=== PATIENT | female | born 1960 | race Caucasian/White ===

== ENCOUNTER 2016-10-22 06:10 | Inpatient (IN) | payer OTHER ==
[~2016-10-22] VITALS: Ht 162.6 cm; Wt 104.3 kg
--- NOTE | 2016-10-22 06:30 | NUR ---
PT TO ED C/O CHEST PAIN/PRESSURE AND RACING HEART. PT HAS HX OF CARDIAC BYPASS AND STENT PLACEMENT. EKG DONE, PT PLACED ON DIRECTOR RADIATION ONCOLOGY, ST AT 154. PAIN WAS MIDSTERNAL 7/10 CHEST PRESSURE. PT DID NOT TAKE ANY MEDICATIONS AT HOME FOR CP. PT C/O SOB EARLIER BUT NOT AT CURRENT MOMENT, 93% ON ROOM AIR.
--- NOTE | 2016-10-22 06:36 | NUR ---
AT BEDSIDE FOR PT EVALUATION
[2016-10-22 06:56] LABS: ABSOLUTE BASOPHIL COUNT 0.1 /CUMM (0.0-0.2); ABSOLUTE EOSINOPHIL COUNT 0.5 /CUMM (0.0-0.7); ABSOLUTE GRANULOCYTE CT 4.8 /CUMM (1.4-6.5); ABSOLUTE LYMPH COUNT 3.1 /CUMM (1.2-3.4); ABSOLUTE MONOCYTE COUNT 0.7 /CUMM (0.10-0.60); BASOPHIL % 0.9 % (0.0-2.0); EOSINOPHIL % 5.1 % (0-5); GRANULOCYTE % 52.4 % (42.2-75.2); HEMATOCRIT 43.7 % (37-47); MEAN CORPUSCULAR HGB 29.1 PG (27.0-31.0); MEAN CORPUSCULAR HGB CONC 34.2 G/DL (33.0-37.0); MEAN PLATELET VOLUME 10.1 FL (7.4-10.4); PLATELET COUNT 191 /CUMM (130-400); RBC DISTRIBUTION WIDTH 13.7 % (11.5-14.5); RED BLOOD CELL CT 5.14 /CUMM (4.20-5.40); WHITE BLOOD CELL COUNT 9.2 /CUMM (4.8-10.8)
[2016-10-22] MEDS ORDERED: ASPIRIN81 M4 PO (07:54)
[2016-10-22] MEDS ORDERED: ATORVASTATIN CA10 M1 PO (07:54)
[2016-10-22] MEDS ORDERED: AMLODIPINE BESYL5 M1 PO (07:54)
[2016-10-22] MEDS ORDERED: AMARYL4 M1 PO (07:55)
[2016-10-22] MEDS ORDERED: ISOSORBIDE MONO30 M1 PO (07:55)
[2016-10-22] MEDS ORDERED: LISINOPRIL40 M1 PO (07:55)
[2016-10-22] MEDS ORDERED: METOPROLOL TART50 M1 PO (07:56)
[2016-10-22] MEDS ORDERED: CLOPIDOGREL75 M1 PO (07:56)
[2016-10-22] MEDS ORDERED: DAILY MULTIPLE1 EACH PO (07:56)
[2016-10-22] MEDS ORDERED: METFORMIN HCL1000 M1 PO (07:56)
[2016-10-22] MEDS ORDERED: PROAIR HFA8.5 GM INH (07:57)
--- NOTE | 2016-10-22 07:59 | RADIOLOGY REPORT ---
EXAMINATION: XR PORTABLE CHEST CLINICAL INFORMATION: Chest pain COMPARISON: Chest radiographs 09/23/2011. TECHNIQUE: Portable frontal view of the chest was obtained. FINDINGS: There is been prior coronary artery bypass with mediastinal clips and sternotomy wires. Heart is within limits of normal size from portable AP view. The vascularity is normal. The lungs are clear. There is no pneumothorax, airspace consolidation, or effusion. The hilar and mediastinal contours and visualized bony structures are unremarkable. IMPRESSION: Prior coronary artery bypass. Lungs clear.
--- NOTE | 2016-10-22 08:06 | ED CARDIAC/CP/PALPITATIONS ---
History of Present Illness General Chief Complaint: Chest Pain Stated Complaint: " CHEST PAIN X1HOUR" Source: patient Exam Limitations: no limitations Vital Signs & Intake/Output Vital Signs & Intake/Output Vital Signs Date Time Temp Pulse Resp B/P B/P Pulse O2 O2 Flow FiO2 Mean Ox Delivery Rate 10/22 0558 156 18 141/86 10/22 0654 96.0 156 20 141/86 98 Room Air 10/22 0629 98.2 156 20 140/86 96 Room Air Allergies Coded Allergies: NO KNOWN ALLERGIES (09/13/11) Reconcile Medications Albuterol Sulfate (Proair Hfa) 90 MCG HFA.AER.AD 2 PUF INH Q4-6 PRN PRN SHORTNESS OF BREATH (Reported) Amlodipine Besylate 5 MG TABLET 1 TAB PO DAILY HEART (Reported) Aspirin (Aspirin*) 81 MG TAB.CHEW 1 TAB PO DAILY HEART HEALTH (Reported) Atorvastatin Calcium 10 MG TABLET 1 TAB PO DAILY CHOLESTEROL (Reported) Clopidogrel Bisulfate (Clopidogrel) 75 MG TABLET 1 TAB PO DAILY BLOOD THINNER (Reported) Glimepiride (Amaryl) 4 MG TABLET 1 TAB PO DAILY DIABETES (Reported) Isosorbide Mononitrate (Isosorbide Mononitrate ER) 30 MG TAB.ER.24H 1 TAB PO DAILY HEART (Reported) Lisinopril 40 MG TABLET 1 TAB PO DAILY HEART (Reported) Metformin HCl 1,000 MG TABLET 1 TAB PO BID DIABETES (Reported) Metoprolol Tartrate 50 MG TABLET 1 TAB PO BID HEART (Reported) Multivitamin (Daily Multiple Vitamin) 1 EACH TABLET 1 TAB PO DAILY VITAMIN SUPPORT (Reported) Triage Note: PT TO ED C/O CHEST PAIN/PRESSURE AND RACING HEART. PT HAS HX OF CARDIAC BYPASS AND STENT PLACEMENT. 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 PAIN WAS MIDSTERNAL 7/10 CHEST PRESSURE. PT DID NOT TAKE ANY MEDICATIONS AT HOME FOR CP. PT C/O SOB EARLIER BUT NOT AT CURRENT MOMENT, 93% ON ROOM AIR. Triage Nurses Notes Reviewed? yes HPI: Patient presents for evaluation of a rapid heartbeat that began abruptly about 1 hour prior to arrival. Patient states that she awoke feeling the pain and took a cold drink but this didn't seem to help. She also felt an associated chest heaviness and shortness of breath. She has had these episodes over the past 2 weeks intermittently. Prior to that she experienced these about 5 years ago before a cardiac bypass. She states currently she isn't really feeling the palpitations anymore. She has a mild chest heaviness in the substernal region. (SUKHDEV TRIMBLE,ANGELINA Maldonado) Past History Travel History Traveled to [place] past 21 day No Medical History Any Pertinent Medical History? 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 No (ANGELINA SANTIZO MD) Review of Systems Review of Systems Constitutional: Reports: no symptoms. EENTM: Reports: no symptoms. Respiratory: Reports: no symptoms. Cardiovascular: Reports: see HPI. GI: Reports: no symptoms. Genitourinary: Reports: no symptoms. Musculoskeletal: Reports: no symptoms. Skin: Reports: no symptoms. Neurological/Psychological: Reports: no symptoms. Hematologic/Endocrine: Reports: no symptoms. Immunologic/Allergic: Reports: no symptoms. All Other Systems: Reviewed and Negative (ANGELINA SANTIZO MD) Physical Exam Physical Exam Cardiovascular: SEE BELOW Comments: Gen.: Well-nourished, well-developed, no acute respiratory distress. Head: Normocephalic, atraumatic. Eyes: Normal inspection bilaterally Ears: Normal inspection bilaterally Nose: Normal inspection Throat/mouth : Moist mucosa Neck: Supple, full range of motion, no goiter Heart: Rapid Regular rate and rhythm, no murmurs rubs or gallops Lungs: Clear to auscultation bilaterally with normal air entry Chest: Nontender Back: Normal range of motion Abdomen: Soft, nontender, nondistended, normal bowel sounds Extremities: Normal range of motion grossly, equal radial pulses, no cyanosis clubbing or edema Neurologic: Cranial nerves grossly intact, speech is clear Skin: warm and dry Psychiatric: Calm, cooperative, no apparent delusions or hallucinations Core Measures ACS in differential dx? Yes Severe Sepsis Present: No Septic Shock Present: No (ANGELINA SANTIZO MD) Progress Differential Diagnosis: svt, SINUS TACHYCARDIA, ACUTE CORONARY SYNDROME Plan of Care: Orders Procedure Date/time Status Place in observation 10/22 917 Active TROPONIN LEVEL 10/22 641 Complete MAGNESIUM 10/22 641 Complete CBC WITHOUT DIFFERENTIAL 10/22 641 Complete BASIC METABOLIC PANEL 10/22 641 Complete EKG 10/23 611 Active Laboratory Tests 10/22/16 0647: Anion Gap 13, Estimated GFR > 60, BUN/Creatinine Ratio 25.0, Glucose 443 H, Calcium 9.4, Magnesium 1.6, Troponin I 0.02, CBC w Diff NO MAN DIFF REQ, RBC 5.14, MCV 85.0, MCH 29.1, RDW 13.7, MPV 10.1, Gran % 52.4, Lymphocytes % 34.1, Monocytes % 7.5, Eosinophils % 5.1 H, Basophils % 0.9, Absolute Granulocytes 4.8, Absolute Lymphocytes 3.1, Absolute Monocytes 0.7 H, Absolute Eosinophils 0.5, Absolute Basophils 0.1, PUBS MCHC 34.2 Initial ED EKG: SINUS TACHYCARDIA WITH A VENTRICULAR RATE OF 155, LIKELY lvh WITH NONSPECIFIC st SEGMENT CHANGES Prior EKG: changed (NORMAL SINUS RHYTHM ON PRIOR) Repeat EKG: changed (NSR, RATE 90'S) Comments: 10/22/2016 8:04:23 AM 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 (SUKHDEV TRIMBLE,ANGELINA Maldonado) Departure Departure Disposition: STILL A PATIENT Condition: Stable Clinical Impression Primary Impression: Sinus tachycardia Secondary Impressions: Chest pain Referrals: JORDEN RODAS,RIO RANDOLPH (PCP/Family) Departure Forms: Customer Survey General Discharge Information (SUKHDEV TRIMBLE,ANGELINA Maldonado) Observation Note Spoke With: ISSA TRIMBLE,[facility] Physician Advisor Notified: CB MARINO MD Place Patient In: Non-ED OBS Care Area Rationale for Observation: My rational for observation is as follows [telemetry monitoring with cardiology consultation, beta blockers, serial enzymes]. (CB MARINO MD) Critical Care Note Critical Care Note Critical Care Time: mins: (45 MIN) (CB MARINO MD)
--- NOTE | 2016-10-22 09:24 | History & Physical ---
OMI ALONZO 10/22/16 0923: General Information and HPI MD Statement: I have seen and personally examined ZAIN CABRERA and documented this H&P. The patient is a 56 year old F who presented with a patient stated chief complaint of [chest pain]. Source of Information: patient Exam Limitations: no limitations History of Present Illness: 56 year old female with PMH of coronary artery disease s/p CABG X4 (08/26/2011) and PCI in 08/23, NIDDM, hypertension, dyslipidemia, with family history of coronary artery disease at a young age (brother 54 years), current someday smoker presented to the ED with c/o CP, palpitations. According to the patient she was her USOH until this morning when she had diet coke this AM, and felt as if she chest pressure, left sided, radiated to the neck, associated with palpitations and SOB. She states giuven her cardiac history she decided to ciome to the ER. Grades it as an 8/10 that progressively worsened even in the ER. Also endorses orthopnea. States that the palpitations have been occuring intermitentlky for the past 1-2 weeks. Of note her brother siria a week ago. Denies any worsening THACKER. Denies any lightheadednesss, nausea, vomiting, or diaphoresis. Palpitations lasted for about an hr, however, this morning did not go away until after she wa sin the ED and received IV meds. Endorses numbness in her toes for about 2 months ago. Symptoms at time of CABG - GERD like symptoms, THACKER, feeling tired. Has not had a an echo or stress test within the past 2 years. Deneis fever,chills. States that she was told she has an artery that was not amenable to any intervention when she had undergone PCI back in 2011. F/U with Dr. Palmer - doesn't recall her HbA1c. Has been compliant with medications. F/U with Dr. Kerr- last saw him in May this year. Allergies/Medications Allergies: Coded Allergies: NO KNOWN ALLERGIES (09/13/11) Home Med list Albuterol Sulfate (Proair Hfa) 90 MCG HFA.AER.AD 2 PUF INH Q4-6 PRN PRN SHORTNESS OF BREATH (Reported) Amlodipine Besylate 5 MG TABLET 1 TAB PO DAILY HEART (Reported) Aspirin (Aspirin*) 81 MG TAB.CHEW 1 TAB PO DAILY HEART HEALTH (Reported) Atorvastatin Calcium 10 MG TABLET 1 TAB PO DAILY CHOLESTEROL (Reported) Clopidogrel Bisulfate (Clopidogrel) 75 MG TABLET 1 TAB PO DAILY BLOOD THINNER (Reported) Glimepiride (Amaryl) 4 MG TABLET 1 TAB PO DAILY DIABETES (Reported) Isosorbide Mononitrate (Isosorbide Mononitrate ER) 30 MG TAB.ER.24H 1 TAB PO DAILY HEART (Reported) Lisinopril 40 MG TABLET 1 TAB PO DAILY HEART (Reported) Metformin HCl 1,000 MG TABLET 1 TAB PO BID DIABETES (Reported) Metoprolol Tartrate 50 MG TABLET 1 TAB PO BID HEART (Reported) Multivitamin (Daily Multiple Vitamin) 1 EACH TABLET 1 TAB PO DAILY VITAMIN SUPPORT (Reported) Past History Travel History Traveled to [place] past 21 day No Medical History Neurological: NONE EENT: NONE Cardiovascular: hypertension, myocardial infarction, mitral stenosis Respiratory: asthma Gastrointestinal: NONE Hepatic: NONE Renal: NONE Musculoskeletal: NONE Psychiatric: NONE Endocrine: diabetes Blood Disorders: NONE 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 Home Who Do You Live With? spouse Services at Home: None Smoking Status: Current Some Day Smoker ETOH Use: denies use Illicit Drug Use: denies illicit drug use Functional Ability ADLs Independent: dressing, eating, toileting, bathing. Ambulation: independent IADLs Independent: shopping, housework, finances, food prep, telephone, transportation , medication admin. 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 EENTM: Denies: visual changes. Cardiovascular: Reports: chest pain, palpitations. Denies: orthopena, peripheral edema, syncope. Respiratory: Reports: orthopnea, short of breath. Denies: cough, hemoptysis, sputum production, wheezing. GI: Denies: abdominal pain, constipation, diarrhea, nausea, vomiting. Genitourinary: Reports: no symptoms. Musculoskeletal: Reports: no symptoms. Neurological/Psychological: Reports: tingling. Denies: headache, numbness, tremors. Exam & Diagnostic Data Last 24 Hrs of Vital Signs/I&O Vital Signs Date Time Temp Pulse Resp B/P B/P Pulse O2 O2 Flow FiO2 Mean Ox Delivery Rate 10/22 0658 156 18 141/86 10/22 0654 96.0 156 20 141/86 98 Room Air 10/22 0629 98.2 156 20 140/86 96 Room Air Intake & Output 10/22 1600 10/22 0800 10/22 0000 Intake Total Output Total Balance Patient 230 lb Weight Weight Reported by Patient Measurement Method Physical Exam General Appearance Alert, Oriented X3, Cooperative, No Acute Distress Skin No Rashes, No Breakdown, No Significant Lesion HEENT Atraumatic, PERRLA, EOMI, dry mucous membranes Neck Supple, No JVD, No thryomegaly, +2 Carotid Pulse wo Bruit, No LAD Cardiovascular Regular Rate, Normal S1, Normal S2, No Murmurs Lungs Clear to Auscultation, Normal Air Movement Abdomen Normal Bowel Sounds, Soft, No Tenderness Neurological Normal Speech, Strength at 5/5 X4 Ext, Normal Tone, Sensation Intact, Cranial Nerves 3-12 NL, Reflexes 2+ Extremities No Clubbing, No Cyanosis, No Edema, Normal Pulses, No Tenderness/ Swelling Vascular Normal Pulses, Pulses Symmetrical Last 24 Hrs of Labs/Antonio: Laboratory Tests 10/22/16 0647: Anion Gap 13, Estimated GFR > 60, BUN/Creatinine Ratio 25.0, Glucose 443 H, Calcium 9.4, Magnesium 1.6, Troponin I 0.02, TSH Pending, Free T4 Pending, CBC w Diff NO MAN DIFF REQ, RBC 5.14, MCV 85.0, MCH 29.1, RDW 13.7, MPV 10.1, Gran % 52.4, Lymphocytes % 34.1, Monocytes % 7.5, Eosinophils % 5.1 H, Basophils % 0.9 , Absolute Granulocytes 4.8, Absolute Lymphocytes 3.1, Absolute Monocytes 0.7 H , Absolute Eosinophils 0.5, Absolute Basophils 0.1, PUBS MCHC 34.2 Diagnostic Data EKG Results Sinus tachycardia 155, LVH, poor R wave progression, no ST-T chnages, QTc: 527mS , normal axis q waves in II, III, aVF CXR Results FINDINGS: There is been prior coronary artery bypass with mediastinal clips and sternotomy wires. Heart is within limits of normal size from portable AP view. The vascularity is normal. The lungs are clear. There is no pneumothorax, airspace consolidation, or effusion. The hilar and mediastinal contours and visualized bony structures are unremarkable. IMPRESSION: Prior coronary artery bypass. Lungs clear. Other Results ECHO FINDINGS Left Ventricle Normal size left ventricle. Normal left ventricular ejection fraction estimated at 60-65%. Left ventricular wall thickness at upper limits of normal. Right Ventricle Normal right ventricular size and function. Right Atrium Normal right atrial size. Left Atrium Mild left atrial dilatation. Mitral Valve Mild mitral annular calcification. Mild mitral regurgitation. Aortic Valve Aortic valve is normal in structure and function. Tricuspid Valve Tricuspid valve is normal in structure and function. Mild tricuspid regurgitation. Right ventricular systolic pressure estimated to be within the normal range at 30 mmHg. Pulmonic Valve Pulmonic valve not well visualized, grossly normal. Pericardium No pericardial effusion. Great Vessels Normal size aortic root. CONCLUSIONS Normal left ventricular systolic function without segmental abnormalities.No significant valvular abnormalities noted. Isak Diaz M.D. (Electronically Signed) Final 14 Sep 2011 10:40 Assessment/Plan Assessment: 56 year old female with PMH of coronary artery disease s/p CABG X4 (08/26/2011) and PCI in 08/23, NIDDM, hypertension, dyslipidemia, with family history of coronary artery disease at a young age (brother 54 years), current someday smoker until the day when she had AK in 08/26/11 presents to the ED with c/o CP, and palpitations. Vitals in admission BP: 140/86, tachycardic to 156, respiratory rate of 20, afebrile, saturating 96% on room air. Labs were pertinent for a normal white blood cell count of 9200, H&H of 14.9/ 43.7, normal MCV of 85, normal platelet count of 1 91,000. Serum chemistries revealed hyponatremia with a sodium of 136, normal potassium of 4.2, bicarbonate of 19, BUN 3015 with a creatinine of 0.6. Serum glucose is elevated to 443. Serum calcium and magnesium within normal limits at 9.4 and 1.6. First set of troponin 0.02. TSH 1.24 EKG revealed sinus tachycardia with a heart rate of 155, left ventricular hypertrophy, poor R-wave progression, no ST-T changes, EDC of 527 with normal axis and Q waves in 23 aVF which are unchanged. Chest x-ray revealed: Prior coronary artery bypass. Lungs clear. In the ER she received 5 mg of IV Lopressor, boluses of normal sodium saline 2 and Novolin R 10 units. Following administration of Lopressor her chest discomfort subsided. Assessment and plan Placed under observation in on telemetry #Chest pain and palpitations Given her extensive cardiac history concerning for NSTEMI. GABBY score is 3. R/O ACS with trop and EKG @ 12:00pm and 18:00 Facility Maintenance Helper consult with Dr. Sanchez has been placed. Follow recommendations Echocardiogram. Continue her on Lopressor 50 mg twice a day, aspirin 81 mg daily, Plavix 75 mg daily, lisinopril 40 mg daily Start her on atorvastatin 80 mg daily. Sublingual and Nitrol 0.5 mg 3 for chest pain Nothing by mouth for now pending results of subsequent blood work. If trops and no EKG's will consider OP stress test. Hold metoprolol, Imdur for now given low blood pressure ranging in the 1 teens. #Insulin-dependent diabetes mellitus Since patient is currently nothing by mouth we'll place her on Toprol and sliding scale every 6 Start her on IV fluids D5 normal saline at 75 mls per hour Accu-Checks every 6 F/U hemoglobin A1c Holding Metformin and Glimeperide - Diet Nothing by mouth for now - DVT prophylaxis Heparin 5000 international units 3 times a day subcutaneous Status Full code As Ranked By This Provider Problem List: 1. Chest pain 2. Sinus tachycardia Core Measures/Miscellaneous Acute Coronary Syndrome ACS Diagnosis: Yes Date of most recent Echo 09/14/11 Last Known EF % 65 WHITNEY/ARB For EF <40% Yes ASA W/I 24hr of admit Yes Beta-Perez W/I 24hrs Yes LDL assessed W/I 24 hrs Yes Currently on Statin Yes Cerebrovascular Accident CVA/TIA Diagnosis: No Congestive Heart Failure CHF Diagnosis: No VTE (View Protocol) VTE Risk Factors: Age > 40 No [facility] VTE prophylaxis d/t: No contraindications No VTE Pharm Prophylaxis d/t: No contraindications VTE Diagnosis: No VTE Type: NONE VTE Confirmed by (Test): NONE Sepsis (View Protocol) Severe Sepsis Present: No Septic Shock Septic Shock Present: No Miscellaneous Documentation Attending Case Discussed With: DR. Huntley Primary Care Physician: RIO GUZMAN Patient sees these Specialists Dr. Kerr - Facility Maintenance Helper - Dr. palmer - Daily Level of Patient Care: Telemetry Consults Needed: Consulting Specialty: Cardiology Resident Review Statement Resident Statement: admitted by resident ISSA TRIMBLE,LUIS A 10/22/16 1122: Attending MD Review Statement Attending Statement Attending MD Statement: examined this patient, discuss w/resident/PA/DIRECTOR OF PSYCHOLOGY, agreed w/resident/PA/DIRECTOR OF PSYCHOLOGY, discussed with family, reviewed EMR data (avail) Attending Assessment/Plan: Patient seen and examined. Plan of care discussed with the medical team and the patient. Available lab work and radiology test reports were reviewed. In summary this is a 56 year old female with PMH of coronary artery disease s/p CABG X4 (08/26/2011) and PCI in 08/23, NIDDM, hypertension, dyslipidemia, with family history of coronary artery disease at a young age (brother 54 years), former smoker until the day when she had AK in 08/26/11 presents to the ED with c /o CP, palpitations. She had diet coke around 5AM, and felt left sided chest pressure radiated to the neck, associated with palpitations and SOB. Vital Signs Date Time Temp Pulse Resp B/P B/P Pulse O2 O2 Flow FiO2 Mean Ox Delivery Rate 10/22 1038 96.4 69 20 113/55 97 Room Air 10/22 1036 96.0 69 20 113/55 10/22 1036 69 20 113/55 10/22 0658 156 18 141/86 10/22 0654 96.0 156 20 141/86 98 Room Air 10/22 0629 98.2 156 20 140/86 96 Room Air Exam: General: Patient awake alert oriented without any distress CVS: S1 plus S2 without any murmur or gallops Chest: Few scattered crepitation without any wheeze. There is no respiratory distress. Abdomen: Soft nontender, bowel sound present, no guarding or rebound CLINICAL RECRUITER: Awake alert oriented without any focal neuro deficit and follows command appropriately Extremities: No edema; no clubbing or cyanosis noted Laboratory Tests 10/22 0647 Chemistry Sodium (137 - 145 mmol/L) 136 L Potassium (3.5 - 5.1 mmol/L) 4.2 Chloride (98 - 107 mmol/L) 104 Carbon Dioxide (22 - 30 mmol/L) 19 L Anion Gap (5 - 16) 13 BUN (7 - 17 mg/dL) 15 Creatinine (0.5 - 1.0 mg/dL) 0.6 Estimated GFR (>60 ml/min) > 60 BUN/Creatinine Ratio (7 - 25 %) 25.0 Glucose (65 - 99 mg/dL) 443 H Hemoglobin A1c (4.2 - 5.8 %) Pending Calcium (8.4 - 10.2 mg/dL) 9.4 Magnesium (1.6 - 2.3 mg/dL) 1.6 Troponin I (< 0.11 ng/ml) 0.02 TSH (0.270 - 4.200 uIU/mL) 4.290 H Free T4 (0.64 - 1.79 ng/dL) 1.24 Hematology CBC w Diff NO MAN DIFF REQ WBC (4.8 - 10.8 /CUMM) 9.2 RBC (4.20 - 5.40 /CUMM) 5.14 Hgb (12.0 - 16.0 G/DL) 14.9 Hct (37 - 47 %) 43.7 MCV (81.0 - 99.0 FL) 85.0 MCH (27.0 - 31.0 PG) 29.1 RDW (11.5 - 14.5 %) 13.7 Plt Count (130 - 400 /CUMM) 191 MPV (7.4 - 10.4 FL) 10.1 Gran % (42.2 - 75.2 %) 52.4 Lymphocytes % (20.5 - 51.1 %) 34.1 Monocytes % (1.7 - 9.3 %) 7.5 Eosinophils % (0 - 5 %) 5.1 H Basophils % (0.0 - 2.0 %) 0.9 Absolute Granulocytes (1.4 - 6.5 /CUMM) 4.8 Absolute Lymphocytes (1.2 - 3.4 /CUMM) 3.1 Absolute Monocytes (0.10 - 0.60 /CUMM) 0.7 H Absolute Eosinophils (0.0 - 0.7 /CUMM) 0.5 Absolute Basophils (0.0 - 0.2 /CUMM) 0.1 PUBS MCHC (33.0 - 37.0 G/DL) 34.2 EKG shows SVT with rate of 150 Chest x-ray shows signs of prior bypass without any pneumonia or CHF Assessment plan * Chest pain rule out AK * SVT and palpitation * History of CAD and CABG * Diabetes history Plan * Check 2 more troponin * Observe on telemetry * Cardiac consult * Echocardiogram * pt may need lopressor IV if she has recurrent SVT * Continue home medication except Glucophage * Can continue sliding scale and glemiperide
--- NOTE | 2016-10-22 10:00 | NUR ---
PT RESTING COMF HR DOWN TO 60'S STABLE NO CO PAIN 2/10 NO DIAPHORESIS NOTED DENEIS CO.
--- NOTE | 2016-10-22 10:13 | NUR ---
PT HAS BED ASSINGMENT 175-1. ROOM NOT READY. RN NOTIFIED.
--- NOTE | 2016-10-22 10:30 | NUR ---
DR. ALONZO AWARE OF CURRENT VS PER MD HOLD KAYE AND AURELIA.
--- NOTE | 2016-10-22 11:41 | NUR ---
12 NOON TROP DRAWN AND SENT.
--- NOTE | 2016-10-22 11:51 | NUR ---
REPORT GIVEN TRANSPORT BOOKED
--- NOTE | 2016-10-22 11:57 | NUR ---
REPEAT EKG DONE #211 PAGED AT THIS TIME
[2016-10-22 12:20] VITALS: BP 124/60
--- NOTE | 2016-10-22 12:40 | NUR ---
CRITICAL VALUE TROPONIN 0.[address] ALONZO, DR. RON, AND MALIK MORENO NOTIFIED.
--- NOTE | 2016-10-22 13:03 | NUR ---
PT ON ADMISSION A&OX3 ON ROOM AIR. WHEN IN ER CHEST PAIN 11/20 NOW ON FLOOR / PRESSURE. SKIN INTACT NO EDEMA, INDEPENDENT, FAMILY AT BEDSIDE. PT PLACED ON MONITOR, IV FLUIDS RUNNING. PT ORIENTED TO ROOM. CALL SANTIZO WITH IN REACH. WILL CONTINUE TO MONITOR.
--- NOTE | 2016-10-22 13:07 | Event Note ---
Event Note Event Note: Patient's second set of troponin went up to 0.17, and EKG showed T wave flattening in V1-V6. D/w Dr. Sanchez, will start patient on Heparin. PATRICIA was negative for hemeoccult. Updated the attendinng, Dr. Huntley Of note patient is allergic to Sulpha and Dilaudid.
--- NOTE | 2016-10-22 15:56 | Cons- Cardiology ---
General Information and HPI Consulting Request Date of Consult: 10/22/16 Requested By: ISSA TRIMBLE,LUIS A History of Present Illness: Claire is a 56 year old female with history of hypertension, dyslipidemia and coronary artery disease status post WA with subsequent CABG x 4 about 5 years ago. She has also undergone a prior percutaneous angioplasty at [facility]. Over the past week this patient has noted intermittent bouts of rapid palpitations. Today, she again noted a quick heart rate but it was also accompanied by a moderate chest pressure that radiated toward her neck. There was some associated mild nausea as well. Otherwise this patient denies shortness of breath beyond baseline or lightheadedness. In the ER the patient was found to have an SVT suspicous for atrial flutter with 2:1 block. The patient's second set of cardiac enzymes are mildly positive although her chest discomfort has almost completely abated. Allergies/Medications Allergies: Coded Allergies: Sulfa (Sulfonamide Antibiotics) (Mild, ABDOMINAL PAIN 10/22/16) hydromorphone (From DILAUDID) (Mild, DIZZINESS 10/22/16) Home Med List: Albuterol Sulfate (Proair Hfa) 90 MCG HFA.AER.AD 2 PUF INH Q4-6 PRN PRN SHORTNESS OF BREATH (Reported) Amlodipine Besylate 5 MG TABLET 1 TAB PO DAILY HEART (Reported) Aspirin (Aspirin*) 81 MG TAB.CHEW 1 TAB PO DAILY HEART HEALTH (Reported) Atorvastatin Calcium 10 MG TABLET 1 TAB PO DAILY CHOLESTEROL (Reported) Clopidogrel Bisulfate (Clopidogrel) 75 MG TABLET 1 TAB PO DAILY BLOOD THINNER (Reported) Glimepiride (Amaryl) 4 MG TABLET 1 TAB PO DAILY DIABETES (Reported) Isosorbide Mononitrate (Isosorbide Mononitrate ER) 30 MG TAB.ER.24H 1 TAB PO DAILY HEART (Reported) Lisinopril 40 MG TABLET 1 TAB PO DAILY HEART (Reported) Metformin HCl 1,000 MG TABLET 1 TAB PO BID DIABETES (Reported) Metoprolol Tartrate 50 MG TABLET 1 TAB PO BID HEART (Reported) Multivitamin (Daily Multiple Vitamin) 1 EACH TABLET 1 TAB PO DAILY VITAMIN SUPPORT (Reported) Past History Travel History Traveled to [place] past 21 day No Medical History Blood Transfusion Hx: No Neurological: NONE EENT: NONE Cardiovascular: hypertension, hyperlipidemia, myocardial infarction, mitral stenosis Respiratory: asthma Gastrointestinal: NONE Hepatic: NONE Renal: pyelonephritis Musculoskeletal: NONE Psychiatric: NONE Endocrine: diabetes Blood Disorders: NONE Cancer(s): NONE 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 Oophorectomy on the left side. Surgical History Surgical History: CABG, left oophorectomy Family History Relations & Conditions If Any: BROTHER FH: congenital heart problem FATHER MOTHER FH: heart attack Psychosocial History Where Do You Live? Home Who Do You Live With? spouse Services at Home: None Smoking Status: Current Some Day Smoker ETOH Use: denies use Illicit Drug Use: denies illicit drug use Functional Ability ADLs Independent: dressing, eating, toileting, bathing. Ambulation: independent IADLs Independent: shopping, housework, finances, food prep, telephone, transportation , medication admin. 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 Exam & Diagnostic Data Vital Signs and I&O Vital Signs Date Time Temp Pulse Resp B/P B/P Pulse O2 O2 Flow FiO2 Mean Ox Delivery Rate 10/22 1220 97.8 66 20 124/60 96 Room Air 10/22 1132 96.4 69 20 113/55 10/22 1038 96.4 69 20 113/55 97 Room Air 10/22 1036 96.0 69 20 113/55 10/22 1036 69 20 113/55 10/22 0658 156 18 141/86 10/22 0654 96.0 156 20 141/86 98 Room Air 10/22 0629 98.2 156 20 140/86 96 Room Air Intake & Output 10/22 1600 10/22 0800 10/22 0000 10/21 1600 10/21 0800 10/21 0000 Intake Total 1000 Output Total Balance 1000 Intake, IV 1000 Patient 230 lb 230 lb Weight Weight Reported by Patient Measurement Method Physical Exam: General: WD/obese female in NAD; alert and oriented x 3 HEENT: NC/AT, PERRL, EOMI Neck: no JVD, no carotid bruit Heart: RRR with 2/6 systolic murmur Lungs: clear bilaterally Abdomen: soft, Obese, NT, +ve bowel sounds Extremities: no edema Diagnostic Data EKG Results 1)atrial flutter with 2: 1 block 2) sinus with abnormal R wave progression and old inferior JAMES wave inversions in leads I and L Assessment/Plan Assessment/Plan * This patient has been experiencing recurrent bouts of tachycardia that are suspected to be atrial flutter with 2:1 block. In the setting of a prolonged episode of this tachycardia the patient has noted chest discomfort and positive cardiac enzymes conistent with a type 2 WA of the demand type. I have a low suspicion of an acute ruptured intracoronary plaque. We will monitor this patient on telemetry and follow cardiac enzymes until they peak. If there is a significant rise in cardiac enzymes then consideration should be given to a cardiac catheterization. For now we will pursue medical therapy. * Obtain an echocardiogram. * Begin anticoagulation with aspirin 325mg daily, continue Plavix and begin IV heparin. * Discontinue Metoprolol and begin Sotolol 80mg BID. * Continue patient's Isosorbide and statin and hold Metformin. Consult Acknowledgment - Thank you for your consult request.
[2016-10-22 16:33] VITALS: BP 141/68
--- NOTE | 2016-10-22 20:44 | ECHOCARDIOGRAM REPORT ---
ZAIN CABRERA Age: 56 : 1960 Gender: F Exam Date: 10/22/2016 13:23 Exam Location: [address] Ht (in): 64 Wt (lb): 230 BSA: 2.22 BP: 113 / 55 Ordering Physician: OMI ALONZO MD Referring Physician: Isak Diaz MD Technologist: Anabela Goff [facility] Room Number: 175 Indications: MYOCARDIAL ISCHEMIA/DC Rhythm: Sinus Technical Quality: fair FINDINGS Left Ventricle Normal size left ventricle. Left ventricular wall thickness mildly increased. Normal left ventricular ejection fraction estimated at 60-65%. Right Ventricle Normal right ventricular size and function. Right Atrium Normal right atrial size. Left Atrium Normal left atrial size. Mitral Valve Mild mitral annular calcification. Trace mitral regurgitation. Aortic Valve Aortic valve not well visualized, grossly normal. Tricuspid Valve Tricuspid valve is normal in structure and function. Trace to mild tricuspid regurgitation. Right ventricular systolic pressure estimated to be within the normal range at 15 mmHg. Pulmonic Valve Pulmonic valve not well visualized, grossly normal. Pericardium No pericardial effusion. Great Vessels Normal size aortic root. CONCLUSIONS Normal left ventricular systolic function with mild concentric hypertrophy. No significant valvular abnormalities noted. Isak Diaz M.D. (Electronically Signed) Final Date: 22 October 2016 20:43 MEASUREMENTS (Male / Female) Normal Values 2D ECHO LV Diastolic Diameter PLAX 4.1 cm 4.2 - 5.9 / 3.9 - 5.3 cm LV Systolic Diameter PLAX 2.5 cm 2.1 - 4.0 cm LV Fractional Shortening PLAX 39.0 % 25 - 46 % LV Ejection Fraction 2D Teich 69.9 % IVS Diastolic Thickness 1.4 cm LVPW Diastolic Thickness 1.4 cm LV Relative Wall Thickness 0.7 RV Internal Dim ED PLAX 2.3 cm 1.9 - 3.8 cm LVOT Diameter 2.0 cm Aortic Root Diameter 3.2 cm LA Systolic Diameter LX 3.5 cm 3.0 - 4.0 / 2.7 - 3.8 cm LA Volume 42.0 cm 18 - 58 / 22 - 52 cm Ascending Aorta Diameter 3.1 cm DOPPLER AV Peak Velocity 173.0 cm/s AV Peak Gradient 12.0 mmHg AV Mean Velocity 125.0 cm/s AV Mean Gradient 7.0 mmHg AV Velocity Time Integral 34.7 cm LVOT Peak Velocity 135.0 cm/s LVOT Peak Gradient 7.3 mmHg LVOT Mean Velocity 90.6 cm/s LVOT Mean Gradient 4.0 mmHg LVOT Velocity Time Integral 27.0 cm LVOT Stroke Volume 84.8 cm AV Area Cont Eq vti 2.4 cm AV Area Cont Eq pk 2.5 cm MV Peak Velocity 97.9 cm/s MV Peak Gradient 3.8 mmHg MV Mean Velocity 51.6 cm/s MV Mean Gradient 1.0 mmHg Mitral E Point Velocity 81.4 cm/s Mitral A Point Velocity 69.1 cm/s Mitral E to A Ratio 1.2 MV PHT Velocity 102.0 cm/s MV Deceleration [place] 456.0 cm/s MV Pressure Half Time 67.1 ms MV Area PHT 3.3 cm MV Deceleration Time 246.0 ms TR Peak Velocity 74.7 cm/s TR Peak Gradient 2.2 mmHg Right Atrial Pressure 5.0 mmHg Pulmonary Artery Systolic Pressu 7.2 mmHg Right Ventricular Systolic Press 7.2 mmHg PV Peak Velocity 87.6 cm/s PV Peak Gradient 3.1 mmHg PV Mean Velocity 60.3 cm/s PV Mean Gradient 2.0 mmHg PV Velocity Time Integral 16.8 cm LV E' Lateral Velocity 9.5 cm/s Mitral E to LV E' Lateral Ratio 8.6 LV E' Septal Velocity 5.7 cm/s Mitral E to LV E' Septal Ratio 14.4
[2016-10-22 22:00] VITALS: BP 140/80
[2016-10-23 00:08] LABS: PTT 30 SEC (25-37)
--- NOTE | 2016-10-23 07:21 | PN- Housestaff ---
See Addendum Subjective Follow-up For: NSTEMI Complaints: no complaints Tele-Events Since Last Visit: Sinus bradycardia - sinus rythm 58-61 Subjective: Patient seen and examined at bedside. She denies any chest pain, palpitations, nausea, vomting, shortness of breath, lower extermity swelling. Review of Systems Constitutional: Denies: chills, fever. EENTM: Denies: visual changes. Cardiovascular: Denies: chest pain, orthopena, palpitations, peripheral edema. Respiratory: Denies: cough, short of breath, sputum production. Gastrointestinal: Denies: abdominal pain, constipation, diarrhea, nausea, vomiting. Genitourinary: Reports: no symptoms. Musculoskeletal: Reports: no symptoms. Neurological/Psychological: Denies: headache, numbness, tingling, tremors. Objective Last 24 Hrs of Vital Signs/I&O Vital Signs Date Time Temp Pulse Resp B/P B/P Pulse O2 O2 Flow FiO2 Mean Ox Delivery Rate 10/22 2200 98.0 71 20 140/80 95 Room Air 10/22 1633 97.9 60 18 141/68 95 Room Air 10/22 1220 97.8 66 20 124/60 96 Room Air 10/22 1132 96.4 69 20 113/55 11 1038 96.4 69 20 113/55 97 Room Air 10/22 1036 96.0 69 20 113/55 11 1036 69 20 113/55 Intake & Output 10/23 0800 /12 0000 10/22 1600 Intake Total 200 1000 Output Total Balance 200 1000 Intake, IV 1000 Intake, Oral 200 Patient 230 lb Weight Physical Exam General Appearance: Alert, Oriented X3, Cooperative, No Acute Distress HEENT: Atraumatic, PERRLA, EOMI, Mucous Membr. moist/pink Neck: Supple, No JVD, No thryomegaly, +2 Carotid Pulse wo Bruit, No LAD Cardiovascular: Regular Rate, Normal S1, Normal S2, No Murmurs Lungs: Clear to Auscultation, Normal Air Movement Abdomen: Normal Bowel Sounds, Soft, No Tenderness, No Hepatospenomegaly, No Masses Neurological: Normal Speech, Strength at 5/5 X4 Ext, Normal Tone, Sensation Intact, Cranial Nerves 3-12 NL, Reflexes 2+ Extremities: No Clubbing, No Cyanosis, No Edema, Normal Pulses, No Tenderness/ Swelling Current Medications: Current Medications Sig/Jo Start time Last Medication Dose Route Stop Time Status Admin Acetaminophen 650 MG Q6P PRN 10/22 1015 AC PO Acetaminophen/ 1 TAB Q6P PRN 10/22 1015 AC Hydrocodone Bitart PO Amlodipine Besylate 5 MG DAILY 10/23 1000 AC PO Aspirin 325 MG ONCE ONE 10/22 1615 DC 10/22 PO 10/22 1616 1721 Aspirin 0 .STK-MED ONE 10/22 1131 DC PO Aspirin 81 MG DAILY 10/22 1006 AC 10/22 PO 1130 Atorvastatin Calcium 80 MG 1700 10/22 1700 AC 10/22 PO 1721 Clopidogrel Bisulfate 0 .STK-MED ONE 10/22 1131 DC PO Clopidogrel Bisulfate 75 MG DAILY 10/22 1006 AC 10/22 PO 1130 Dextrose/Sodium 1,000 ML Q13H 10/22 1030 DC 10/22 Chloride IV 10/22 2329 1132 Heparin Sodium 5,000 UNIT Q8 10/22 1400 DC (Porcine) SC Heparin Sodium 4,000 UNIT ONCE ONE 10/22 1315 DC 10/22 (Porcine) IV 10/22 1316 1430 Heparin Sodium/ 25,000 UNIT Q24H 10/22 1315 AC 10/22 Dextrose IV 1430 Dextrose/Water 500 ML Insulin Human Regular 0 Q6 10/22 1200 AC 10/22 SC 2359 Insulin Human Regular 10 UNITS ONCE ONE 10/22 0830 DC SC 10/22 0831 Isosorbide 30 MG DAILY 10/22 1007 AC 10/22 Mononitrate PO 1054 Lisinopril 40 MG DAILY 10/22 1007 AC PO Metoprolol Tartrate 50 MG BID 10/22 2200 CAN PO Metoprolol Tartrate 50 MG BID 10/22 1007 DC PO Metoprolol Tartrate 25 MG ONCE ONE 10/22 0830 DC PO 10/22 0831 Metoprolol Tartrate 5 MG ONCE ONE 10/22 0830 DC IV 10/22 0831 Morphine Sulfate 2 MG Q4P PRN 10/22 1015 AC IV Nitroglycerin 0.4 MG Q 5 MINUTES X 3 DO.. 10/22 1030 AC SL Nitroglycerin 0.5 GM ONCE ONE 10/22 0830 DC TOP 10/22 0831 Sotalol HCl 80 MG BID 10/22 2200 AC 10/22 PO 2142 Last 24 Hrs of Lab/Antonio Results Last 24 Hrs of Labs/Mics: Laboratory Tests 10/23/16 0155: Troponin I 0.14 *H 10/22/16 2320: APTT 30 10/22/16 1919: Troponin I 0.20 *H 10/22/16 1145: Troponin I 0.17 *H Orders Fingersticks (last 24 hrs): 225, 282, 290, 366, 215, 232 ECHO Findings: FINDINGS Left Ventricle Normal size left ventricle. Left ventricular wall thickness mildly increased. Normal left ventricular ejection fraction estimated at 60-65%. Right Ventricle Normal right ventricular size and function. Right Atrium Normal right atrial size. Left Atrium Normal left atrial size. Mitral Valve Mild mitral annular calcification. Trace mitral regurgitation. Aortic Valve Aortic valve not well visualized, grossly normal. Tricuspid Valve Tricuspid valve is normal in structure and function. Trace to mild tricuspid regurgitation. Right ventricular systolic pressure estimated to be within the normal range at 15 mmHg. Pulmonic Valve Pulmonic valve not well visualized, grossly normal. Pericardium No pericardial effusion. Great Vessels Normal size aortic root. CONCLUSIONS Normal left ventricular systolic function with mild concentric hypertrophy. No significant valvular abnormalities noted. Isak Diaz M.D. (Electronically Signed) Final Date: 22 October 2016 20:43 Assessment/Plan Assessment: 56 year old female with PMH of coronary artery disease s/p CABG X4 (08/26/2011) and PCI in 08/23, NIDDM, hypertension, dyslipidemia, with family history of coronary artery disease at a young age (brother 54 years), current someday smoker until the day when she had MN in 08/26/11 presents to the ED with c/o CP, and palpitations. Vitals in admission BP: 140/86, tachycardic to 156, respiratory rate of 20, afebrile, saturating 96% on room air. Labs were pertinent for a normal white blood cell count of 9200, H&H of 14.9/ 43.7, normal MCV of 85, normal platelet count of 1 91,000. Serum chemistries revealed hyponatremia with a sodium of 136, normal potassium of 4.2, bicarbonate of 19, BUN 3015 with a creatinine of 0.6. Serum glucose is elevated to 443. Serum calcium and magnesium within normal limits at 9.4 and 1.6. First set of troponin 0.02. TSH 1.24 EKG revealed sinus tachycardia with a heart rate of 155, left ventricular hypertrophy, poor R-wave progression, no ST-T changes, EDC of 527 with normal axis and Q waves in 23 aVF which are unchanged. Chest x-ray revealed: Prior coronary artery bypass. Lungs clear. In the ER she received 5 mg of IV Lopressor, boluses of normal sodium saline 2 and Novolin R 10 units. Following administration of Lopressor her chest discomfort subsided. Assessment and plan Admit to Telemetry given elevated troponins. #Chest pain and palpitations Most likely 2/2 demand ischemia from tachycardia Echocardiogram did not show any RWMA. She was started on Sotalol 80mg BID yesterdy. Will switch her back to her home dose of Lopressor 50 mg twice a day, Imdur 30mg ER aspirin 81 mg daily, Plavix 75 mg daily, lisinopril 40 mg daily and add Multaq 400mg BID, and continue on Atorvasatin 80mg daily. Will strart her on Eliquis 5mg BID PO a nd D/C Heparin 2 hrs later. Since she was on Sotalol will check QTc prior to her receving Lopressor tonight. Sublingual and Nitrol 0.5 mg 3 for chest pain She would probably benefit from coronary angiogram as an OP. F/U cardio recs #Insulin-dependent diabetes mellitus Novolog [facility] Accu-Checks every 6 F/U hemoglobin A1c Holding Metformin and Glimeperide - Diet - Diabetic - DVT prophylaxis - Heparin with transition to Eliquis Status Full code Problem List: 1. Chest pain Pain Ratin Pain Location: n/a Pain Goal: Remain pain free Pain Plan: tyelenol, morphine Tomorrow's Labs & Rationales: none Consulting Request: Consulting Specialty: Cardiology
[2016-10-23 09:07] VITALS: BP 153/84
[2016-10-23 10:08] LABS: PTT 34 SEC (25-37)
--- NOTE | 2016-10-23 10:53 | PN- Cardiology ---
Subjective Subjective: Denies any recurrent symptoms. Objective Vital Signs and I&Os Vital Signs Date Time Temp Pulse Resp B/P B/P Pulse O2 O2 Flow FiO2 Mean Ox Delivery Rate 10/23 0907 98.5 60 17 153/84 94 Room Air 10/22 2200 98.0 71 20 140/80 95 Room Air 10/22 1633 97.9 60 18 141/68 95 Room Air 10/22 1220 97.8 66 20 124/60 96 Room Air 10/22 1132 96.4 69 20 113/55 Intake & Output 10/23 1600 10/23 0800 10/23 0000 10/22 1600 10/22 0800 10/22 0000 Intake Total 200 1000 Output Total Balance 200 1000 Intake, IV 1000 Intake, Oral 200 Patient 230 lb 230 lb Weight Weight Reported by Patient Measurement Method Physical Exam: General: no apparent distress. Alert. Eyes: No obvious scleral icterus. HEENT: No jugular venous distention or abnormal jugular venous pulsations. Cardiovascular: Normal intensity S1/S2. Regular. Respiratory: Lungs clear to auscultation bilaterally. Abdomen: Soft, nontender with no guarding or rebound tenderness. Musculoskeletal: No clubbing or cyanosis noted, no edema Skin: No obvious rashes or ulcerations. Neurologic: No gross focal deficits noted. Lymph: No gross lymphadenopathy. Current Medications: Current Medications Sig/Jo Start time Last Medication Dose Route Stop Time Status Admin Acetaminophen 650 MG Q6P PRN 10/22 1015 AC PO Acetaminophen/ 1 TAB Q6P PRN 10/22 1015 AC Hydrocodone Bitart PO Amlodipine Besylate 5 MG DAILY 10/23 1000 AC PO Aspirin 325 MG ONCE ONE 10/22 1615 DC 10/22 PO 10/22 1616 1721 Aspirin 0 .STK-MED ONE 10/22 1131 DC PO Aspirin 81 MG DAILY 10/22 1006 AC 10/22 PO 1130 Atorvastatin Calcium 80 MG 1700 10/22 1700 AC 10/22 PO 1721 Clopidogrel Bisulfate 0 .STK-MED ONE 10/22 1131 DC PO Clopidogrel Bisulfate 75 MG DAILY 10/22 1006 AC 10/22 PO 1130 Dextrose/Sodium 1,000 ML Q13H 10/22 1030 DC 10/22 Chloride IV 10/22 2329 1132 Heparin Sodium 5,000 UNIT Q8 10/22 1400 DC (Porcine) SC Heparin Sodium 4,000 UNIT ONCE ONE 10/22 1315 DC 10/22 (Porcine) IV 10/22 1316 1430 Heparin Sodium/ 25,000 UNIT Q24H 10/22 1315 AC 10/22 Dextrose IV 1430 Dextrose/Water 500 ML Insulin Aspart 0 TIDAC 10/23 0800 AC SC Insulin Human Regular 0 Q6 10/22 1200 DC 10/22 SC 2359 Isosorbide 30 MG DAILY 10/22 1007 AC 10/22 Mononitrate PO 1054 Lisinopril 40 MG DAILY 10/22 1007 AC PO Metoprolol Tartrate 50 MG BID 10/22 2200 CAN PO Morphine Sulfate 2 MG Q4P PRN 10/22 1015 AC IV Nitroglycerin 0.4 MG Q 5 MINUTES X 3 DO.. 10/22 1030 AC SL Sotalol HCl 80 MG BID 10/22 2200 DC 10/22 PO 2142 Results Last 48 Hrs of Labs/Mics: Laboratory Tests 10/23/16 0920: Anion Gap 8, Estimated GFR > 60, BUN/Creatinine Ratio 23.3, Triglycerides 218 H , Cholesterol 193, LDL Cholesterol, Calc 121, HDL Cholesterol 29 L, Cholesterol /HDL Ratio 7 H, APTT 34 10/23/16 0155: Troponin I 0.14 *H 10/22/16 2320: APTT 30 10/22/16 1919: Troponin I 0.20 *H 10/22/16 1145: Troponin I 0.17 *H 10/22/16 0647: Anion Gap 13, Estimated GFR > 60, BUN/Creatinine Ratio 25.0, Glucose 443 H, Hemoglobin A1c Pending, Calcium 9.4, Magnesium 1.6, Troponin I 0.02, TSH 4.290 H, Free T4 1.24, CBC w Diff NO MAN DIFF REQ, RBC 5.14, MCV 85.0, MCH 29.1, RDW 13.7, MPV 10.1, Gran % 52.4, Lymphocytes % 34.1, Monocytes % 7.5, Eosinophils % 5.1 H, Basophils % 0.9, Absolute Granulocytes 4.8, Absolute Lymphocytes 3.1, Absolute Monocytes 0.7 H, Absolute Eosinophils 0.5, Absolute Basophils 0.1, PUBS MCHC 34.2 Recent Imaging Studies: Telemetry tracings were personally reviewed and shows sinus rhythm Echocardiogram CONCLUSIONS Normal left ventricular systolic function with mild concentric hypertrophy. No significant valvular abnormalities noted. Twelve-lead ECG tracing from earlier this morning personally reviewed: Sinus bradycardia at 56 bpm with prolonged QT Assessment/Plan Assessment/Plan 1. New onset supraventricular tachyarrhythmia likely due to paroxysmal atrial flutter 2. Demand ischemia 3. History of coronary artery disease with CABG/bare-metal stent 2011, complicated by retroperitoneal bleed 4. Diabetes 5. Hypertension 6. Prolonged QT on new sotalol Echocardiogram shows no evidence of acute wall motion abnormality. The patient remains in sinus rhythm and is currently asymptomatic. ECG from early this morning does show prolonged QT interval with bradycardia which can increase the risk of ventricular arrhythmia and we are discontinuing the sotalol. Plan to resume outpatient beta reynaldo this evening along with adding Dronedarone 400 mg PO BID also to start this evening. Please repeat a 12-lead ECG this evening and again tomorrow morning. Can transition the IV heparin to Eliquis 5 mg by mouth twice a day given her elevated CHADS-Vasc score. Risks/benefits/alternatives of anticoagulation were discussed extensively with the patient and she wishes to proceed. Continue low- dose daily aspirin and discontinue Plavix therapy. The patient will be a potential candidate for elective flutter ablation in the future. The above recommendations were discussed at length with the patient and the covering medical team. Indio Catalan MD [facility] Continue telemetry? Yes
[2016-10-23 11:38] LABS: ABSOLUTE BASOPHIL COUNT 0.1 /CUMM (0.0-0.2); ABSOLUTE EOSINOPHIL COUNT 0.4 /CUMM (0.0-0.7); ABSOLUTE GRANULOCYTE CT 4.9 /CUMM (1.4-6.5); ABSOLUTE LYMPH COUNT 2.8 /CUMM (1.2-3.4); ABSOLUTE MONOCYTE COUNT 0.5 /CUMM (0.10-0.60); BASOPHIL % 0.6 % (0.0-2.0); GRANULOCYTE % 56.6 % (42.2-75.2); MEAN CORPUSCULAR HGB 28.7 PG (27.0-31.0); MEAN CORPUSCULAR HGB CONC 34.1 G/DL (33.0-37.0); MEAN CORPUSCULAR VOLUME 84.3 FL (81.0-99.0); MEAN PLATELET VOLUME 10.2 FL (7.4-10.4); PLATELET COUNT 159 /CUMM (130-400); RBC DISTRIBUTION WIDTH 13.7 % (11.5-14.5); RED BLOOD CELL CT 4.57 /CUMM (4.20-5.40); WHITE BLOOD CELL COUNT 8.7 /CUMM (4.8-10.8)
[2016-10-23 11:52] LABS: HEMATOCRIT 38.5 % (37-47)
[2016-10-23] MEDS ORDERED: MULTAQ400 M1 PO (15:48)
[2016-10-23] MEDS ORDERED: ATORVASTATIN CA80 M1 PO (15:48)
[2016-10-23] MEDS ORDERED: ELIQUIS5 M1 PO (15:48)
--- NOTE | 2016-10-23 15:51 | Patient Discharge Instructions ---
Discharge Instructions General Discharge Information You were seen/treated for: - NSTEMI - Atrial Flutter Special Instructions: Please follow up with your primary care physican in one week. 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 Diet Recommended Diet: Diabetic Activity Activity Self Limited: Yes Acute Coronary Syndrome Inclusion Criteria At DC or during hospital stay patient has or had the following: ACS DIAGNOSIS Yes Discharge Core Measures Meds if any: Prescribed or Continued at Discharge WHITNEY/ARB if EF <40% Yes Aspirin Yes Beta-Perez Yes Statin Yes Meds if any: NOT Prescribed or Continued at Discharge Congestive Heart Failure Inclusion Criteria At DC or during hospital stay patient has or had the following: CHF DIAGNOSIS No Discharge Core Measures Meds if any: Prescribed or Continued at Discharge Meds if any: NOT Prescribed or Continued at Discharge Cerebrovascular accident Inclusion Criteria At DC or during hospital stay patient has or had the following: CVA/TIA Diagnosis No Discharge Core Measures Meds if any: Prescribed or Continued at Discharge Meds if any: NOT Prescribed or Continued at Discharge Venous thromboembolism Inclusion Criteria VTE Diagnosis No VTE Type NONE VTE Confirmed by (Test) NONE Discharge Core Measures - Per Current guidelines, there needs to be overlap - treatment for the first 5 days of Warfarin therapy. - If discharged on Warfarin prior to 5 days of - overlap therapy, the patient will need to be - assessed for post discharge needs including - *Post discharge parental anticoagulation - *Warfarin and/or parental anticoagulation education - *Follow up date to check INR post discharge At least 5 days overlap therapy as Inpatient No Meds if any: Prescribed or Continued at Discharge Note: Overlap Therapy is Warfarin and Anticoagulant Meds if any: NOT Prescribed or Continued at Discharge
[2016-10-23 16:09] VITALS: BP 127/59
[2016-10-23 23:00] VITALS: BP 126/70
--- NOTE | 2016-10-24 07:12 | PN- Housestaff ---
See Addendum Subjective Follow-up For: - NSTEMI - IDDM - Atrial flutter with RVR Complaints: no complaints Tele-Events Since Last Visit: Sinus bradycardia 46-57; HR: 39 @12:00am Subjective: Patient seen and examined at bedside She is sititng comfortably, and denies any chest pressure, palpitations, nausea, vomiting, fever, chills. Review of Systems Constitutional: Denies: chills, fever, weakness. EENTM: Denies: visual changes. Cardiovascular: Denies: chest pain, orthopena, palpitations, peripheral edema, syncope. Respiratory: Denies: cough, short of breath, wheezing. Gastrointestinal: Denies: abdominal pain, diarrhea, nausea, vomiting. Genitourinary: Reports: no symptoms. Musculoskeletal: Reports: no symptoms. Neurological/Psychological: Denies: headache, numbness, tingling, tremors, weakness. Objective Last 24 Hrs of Vital Signs/I&O Vital Signs Date Time Temp Pulse Resp B/P B/P Pulse O2 O2 Flow FiO2 Mean Ox Delivery Rate 10/24 0000 Room Air 10/23 2300 98.1 59 18 126/70 96 Room Air 10/23 2140 59 130/60 10/23 1609 98.2 55 17 127/59 95 Room Air 10/23 1259 Room Air Room Air 10/23 1112 60 153/84 10/23 1112 60 153/84 12 1112 60 153/84 10/23 0907 98.5 60 17 153/84 94 Room Air Intake & Output 10/24 0800 10/24 0000 10/23 1600 Intake Total 386 180 8826 Output Total 2600 Balance 400 350 -150 Intake, IV 450 Intake, Oral 189 075 6444 Number 1 Bowel Movements Output, Urine 2600 Physical Exam General Appearance: Alert, Oriented X3, Cooperative, No Acute Distress Skin: No Rashes HEENT: Atraumatic, PERRLA, EOMI, Mucous Membr. moist/pink Neck: Supple, No JVD, No thryomegaly, +2 Carotid Pulse wo Bruit, No LAD Cardiovascular: Regular Rate, Normal S1, Normal S2, No Murmurs Lungs: Clear to Auscultation, Normal Air Movement Abdomen: Normal Bowel Sounds, Soft, No Tenderness, No Hepatospenomegaly, No Masses Neurological: Normal Speech, Strength at 5/5 X4 Ext, Normal Tone, Sensation Intact, Cranial Nerves 3-12 NL, Reflexes 2+ Extremities: No Clubbing, No Cyanosis, No Edema, Normal Pulses, No Tenderness/ Swelling Vascular: Normal Pulses, Pulses Symmetrical Current Medications: Current Medications Sig/Jo Start time Last Medication Dose Route Stop Time Status Admin Acetaminophen 650 MG Q6P PRN 10/22 1015 AC PO Acetaminophen/ 1 TAB Q6P PRN 10/22 1015 AC Hydrocodone Bitart PO Amlodipine Besylate 5 MG DAILY 10/23 1000 AC 10/23 PO 1112 Apixaban 5 MG BID 10/23 1316 AC 10/23 PO 2141 Aspirin 81 MG DAILY 10/22 1006 AC 10/23 PO 1112 Atorvastatin Calcium 80 MG 1700 10/22 1700 AC 10/23 PO 1618 Clopidogrel Bisulfate 75 MG DAILY 10/22 1006 DC 10/23 PO 1112 Dronedarone 400 MG BID 10/23 2200 AC 10/23 PO 2140 Heparin Sodium 10,000 UNIT .STK-MED ONE 10/23 1313 DC (Porcine) IV 10/23 1314 Heparin Sodium/ 25,000 UNIT Q24H 10/22 1315 DC 10/23 Dextrose IV 1324 Dextrose/Water 500 ML Insulin Aspart 0 TIDAC 10/23 0800 AC 10/23 SC 1806 Insulin Human Regular 0 Q6 10/22 1200 DC 10/22 SC 2359 Isosorbide 30 MG DAILY 10/22 1007 AC 10/23 Mononitrate PO 1112 Lisinopril 40 MG DAILY 10/22 1007 AC 10/23 PO 1112 Metoprolol Tartrate 50 MG BID 10/23 2200 10/23 PO 2147 Morphine Sulfate 2 MG Q4P PRN 10/22 1015 IV Nitroglycerin 0.4 MG Q 5 MINUTES X 3 DO.. 10/22 1030 [facility] Patient Medication 1 ED .STK-MED ONE 10/23 1413 DC Teaching ED 10/23 1414 Sotalol HCl 80 MG BID 10/22 2200 IL 10/22 PO 2142 Last 24 Hrs of Lab/Antonio Results Last 24 Hrs of Labs/Mics: Laboratory Tests 10/23/16 1600: APTT Cancelled 10/23/16 1122: RBC 4.57, MCV 84.3, MCH 28.7, RDW 13.7, MPV 10.2, Gran % 56.6, Lymphocytes % 31.6, Monocytes % 6.2, Eosinophils % 5.0, Basophils % 0.6, Absolute Granulocytes 4.9, Absolute Lymphocytes 2.8, Absolute Monocytes 0.5, Absolute Eosinophils 0.4, Absolute Basophils 0.1, PUBS MCHC 34.1 10/23/16 0920: Anion Gap 8, Estimated GFR > 60, BUN/Creatinine Ratio 23.3, Triglycerides 218 H , Cholesterol 193, LDL Cholesterol, Calc 121, HDL Cholesterol 29 L, Cholesterol /HDL Ratio 7 H, APTT 34 Orders Fingersticks (last 24 hrs): 224, 215, 232, 281, 189, 246 Assessment/Plan Assessment: 56 year old female with PMH of coronary artery disease s/p CABG X4 (08/26/2011) and PCI in 08/23, NIDDM, hypertension, dyslipidemia, with family history of coronary artery disease at a young age (brother 54 years), current someday smoker until the day when she had TN in 08/26/11 presents to the ED with c/o CP, and palpitations. Vitals in admission BP: 140/86, tachycardic to 156, respiratory rate of 20, afebrile, saturating 96% on room air. Labs were pertinent for a normal white blood cell count of 9200, H&H of 14.9/ 43.7, normal MCV of 85, normal platelet count of 1 91,000. Serum chemistries revealed hyponatremia with a sodium of 136, normal potassium of 4.2, bicarbonate of 19, BUN 3015 with a creatinine of 0.6. Serum glucose is elevated to 443. Serum calcium and magnesium within normal limits at 9.4 and 1.6. First set of troponin 0.02. TSH 1.24 EKG revealed sinus tachycardia with a heart rate of 155, left ventricular hypertrophy, poor R-wave progression, no ST-T changes, EDC of 527 with normal axis and Q waves in 23 aVF which are unchanged. Chest x-ray revealed: Prior coronary artery bypass. Lungs clear. In the ER she received 5 mg of IV Lopressor, boluses of normal sodium saline 2 and Novolin R 10 units. Following administration of Lopressor her chest discomfort subsided. Assessment and plan #Chest pain and palpitations - Most likely 2/2 demand ischemia from tachycardia - Echocardiogram did not show any RWMA. - She was restarted on her home dose of Lopressor 50 mg twice a day yesterday. QTC was 439ms last evening. She, however, continues to be bradycardic from the 30-40's. Would consider decraesing Metoprolol to 25mg BID. - She was also started on Eliquis 5mg BID PO for AC given atrial flutter as well as on Multaq 400mg BID. - She was continued on Imdur 30mg ER, aspirin 81 mg daily, lisinopril 40 mg daily and continue on Atorvasatin 80mg daily. Continue sublingual Nitro 0.5 mg 3 for chest pain She would probably benefit from coronary angiogram as an OP. F/U cardio recs. If ok from their standpoint, will plan to D/C later today. #Insulin-dependent diabetes mellitus Novolog [facility] [place], [place] Accu-Checks every 6 Hemoglobin A1c -11.2 Holding Metformin and Glimeperide - Diet - Diabetic - DVT prophylaxis - Eliquis Status Full code Problem List: 1. CHEST PAIN Pain Ratin Pain Location: Not applicable. Pain Goal: Remain pain free Pain Plan: tylenol 650mg PO Q6 PRN Tomorrow's Labs & Rationales: n/a Consulting Request: Consulting Specialty: Cardiology
--- NOTE | 2016-10-24 07:14 | Discharge Summary ---
Visit Information Visit Dates Admission Date: 10/22/16 Discharge Date: 10/24/16 Hospital Course Course Attending Physician: JOHNSON MCARTHUR M.D Primary Care Physician: RIO GUZMAN Consulting Request: Consulting Specialty: Cardiology Hospital Course: In summary this is a 56 year old female with PMH of coronary artery disease s/p CABG X4 (08/26/2011) and PCI in 08/23, NIDDM, hypertension, dyslipidemia, with family history of coronary artery disease at a young age (brother 54 years), current someday smoker until the day when she had UT in 08/26/11 presents to the ED with c/o CP, and palpitations. Vitals in admission BP: 140/86, tachycardic to 156, respiratory rate of 20, afebrile, saturating 96% on room air. Labs were pertinent for a normal white blood cell count of 9200, H&H of 14.9/ 43.7, normal MCV of 85, normal platelet count of 1 91,000. Serum chemistries revealed hyponatremia with a sodium of 136, normal potassium of 4.2, bicarbonate of 19, BUN 3015 with a creatinine of 0.6. Serum glucose is elevated to 443. Serum calcium and magnesium within normal limits at 9.4 and 1.6. First set of troponin 0.02. TSH 1.24 EKG revealed atrial flutter with 2:1 block; 155, left ventricular hypertrophy, poor R-wave progression, no ST-T changes, QTc of 527 with normal axis and Q waves in II, III, aVF which are unchanged. Chest x-ray revealed: Prior coronary artery bypass. Lungs clear. In the ER she received 5 mg of IV Lopressor, boluses of normal sodium saline 2 and Novolin R 10 units. Following administration of Lopressor her chest discomfort subsided. # NSTEMI in the setting of new onset atrial flutter. - Patient c/o chest pain and had elevation in troponins from 0.06 - 0.17, with mild T wvae flattening and ST -T changes in pre-cordial leads. This was thought to be most likely 2/2 demand ischemia from tachycardia vs an NSTEMI. An echocardiogram was done which did not show any RWMA. She was started on Sotalol 80mg BID, however, she bradied down to the 30's with a prolonged QTc, and so she was switched back to her home dose of Lopressor 50 mg twice a day. Repeat QTC was 439ms, however, she continued to be bradycardic in the 30-40's. Decision was made to decrease Metoprolol to 25mg BID on dischrge with OP folllow up with Dr. Kerr in a week. Given her high [id number], she was also high and she was started on Eliquis 5mg BID PO for AC given atrial flutter as well as on Multaq 400mg BID, Atorvasatin 80mg daily. She was continued on Imdur 30mg ER, aspirin 81 mg daily, lisinopril 40 mg daily. She would probably benefit from coronary angiogram as an OP. She will aslo F/U with the cardiology service as an outpatient for referral for ablation therapy. #Insulin-dependent diabetes mellitus Her Hemoglobin A1c was 11.2. SHe was placed on Novolog SSC. We resumed her on her home medications of Metformin and Glimeperide. Given her cardiac history and uncontrolled DM, she'd benefit from being on insulin. F/U with her PCP. Allergies: Coded Allergies: Sulfa (Sulfonamide Antibiotics) (Mild, ABDOMINAL PAIN 10/22/16) hydromorphone (From DILAUDID) (Mild, DIZZINESS 10/22/16) Significant Procedures: SERVICE DATE: 10/22/16 EXAM TYPE: RAD - XRY-PORTABLE CHEST XRAY FINDINGS: There is been prior coronary artery bypass with mediastinal clips and sternotomy wires. Heart is within limits of normal size from portable AP view. The vascularity is normal. The lungs are clear. There is no pneumothorax, airspace consolidation, or effusion. The hilar and mediastinal contours and visualized bony structures are unremarkable. IMPRESSION: Prior coronary artery bypass. Lungs clear. SERVICE DATE: 10/22/16- EXAM TYPE: CARD - ECHOCARDIOGRAM FINDINGS Left Ventricle Normal size left ventricle. Left ventricular wall thickness mildly increased. Normal left ventricular ejection fraction estimated at 60-65%. Right Ventricle Normal right ventricular size and function. Right Atrium Normal right atrial size. Left Atrium Normal left atrial size. Mitral Valve Mild mitral annular calcification. Trace mitral regurgitation. Aortic Valve Aortic valve not well visualized, grossly normal. Tricuspid Valve Tricuspid valve is normal in structure and function. Trace to mild tricuspid regurgitation. Right ventricular systolic pressure estimated to be within the normal range at 15 mmHg. Pulmonic Valve Pulmonic valve not well visualized, grossly normal. Pericardium No pericardial effusion. Great Vessels Normal size aortic root. CONCLUSIONS Normal left ventricular systolic function with mild concentric hypertrophy. No significant valvular abnormalities noted. Isak Diaz M.D. (Electronically Signed) Final Date: 22 October 2016 20:43 MEASUREMENTS (Male / Female) Normal Values 2D ECHO LV Diastolic Diameter PLAX 4.1 cm 4.2 - 5.9 / 3.9 - 5.3 cm LV Systolic Diameter PLAX 2.5 cm 2.1 - 4.0 cm LV Fractional Shortening PLAX 39.0 % 25 - 46 % LV Ejection Fraction 2D Teich 69.9 % IVS Diastolic Thickness 1.4 cm LVPW Diastolic Thickness 1.4 cm LV Relative Wall Thickness 0.7 RV Internal Dim ED PLAX 2.3 cm 1.9 - 3.8 cm LVOT Diameter 2.0 cm Aortic Root Diameter 3.2 cm LA Systolic Diameter LX 3.5 cm 3.0 - 4.0 / 2.7 - 3.8 cm LA Volume 42.0 cm 18 - 58 / 22 - 52 cm Ascending Aorta Diameter 3.1 cm DOPPLER AV Peak Velocity 173.0 cm/s AV Peak Gradient 12.0 mmHg AV Mean Velocity 125.0 cm/s AV Mean Gradient 7.0 mmHg AV Velocity Time Integral 34.7 cm LVOT Peak Velocity 135.0 cm/s LVOT Peak Gradient 7.3 mmHg LVOT Mean Velocity 90.6 cm/s LVOT Mean Gradient 4.0 mmHg LVOT Velocity Time Integral 27.0 cm LVOT Stroke Volume 84.8 cm AV Area Cont Eq vti 2.4 cm AV Area Cont Eq pk 2.5 cm MV Peak Velocity 97.9 cm/s MV Peak Gradient 3.8 mmHg MV Mean Velocity 51.6 cm/s MV Mean Gradient 1.0 mmHg Mitral E Point Velocity 81.4 cm/s Mitral A Point Velocity 69.1 cm/s Mitral E to A Ratio 1.2 MV PHT Velocity 102.0 cm/s MV Deceleration [place] 456.0 cm/s MV Pressure Half Time 67.1 ms MV Area PHT 3.3 cm MV Deceleration Time 246.0 ms TR Peak Velocity 74.7 cm/s TR Peak Gradient 2.2 mmHg Right Atrial Pressure 5.0 mmHg Pulmonary Artery Systolic Pressu 7.2 mmHg Right Ventricular Systolic Press 7.2 mmHg PV Peak Velocity 87.6 cm/s PV Peak Gradient 3.1 mmHg PV Mean Velocity 60.3 cm/s PV Mean Gradient 2.0 mmHg PV Velocity Time Integral 16.8 cm LV E' Lateral Velocity 9.5 cm/s Mitral E to LV E' Lateral Ratio 8.6 LV E' Septal Velocity 5.7 cm/s Mitral E to LV E' Septal Ratio 14.4 Disposition Summary Disposition Principal Diagnosis: Atrial flutter with RVR NSTEMI - most likely 2/2 demand ischemia Additional Diagnosis: HTN HLP DM Discharge Disposition: home or self care Discharge Instructions General Discharge Information Code Status: Full Code Patient's Diet: Diabetic Patient's Activity: As tolerated Follow-Up Instructions/Appts: Please follow up with your primary care physican in one week. Please follow up with your cash on delivery clerk in one week. Medications at Discharge Discharge Medications: Stop taking the following medications: Atorvastatin Calcium (Atorvastatin Calcium) 10 MG TABLET ORAL DAILY Qty = 90 Metoprolol Tartrate (Metoprolol Tartrate) 50 MG TABLET ORAL TWICE DAILY Qty = 180 Clopidogrel Bisulfate (Clopidogrel) 75 MG TABLET ORAL DAILY Qty = 90 Continue taking these medications: Amlodipine Besylate (Amlodipine Besylate) 5 MG TABLET 1 Tablet ORAL DAILY Qty = 90 Comments: Last Taken: 10/24/16 Time: 9 AM Aspirin (Aspirin*) 81 MG TAB.CHEW 1 Tablet ORAL DAILY Comments: Last Taken: 10/24/16 Time: 9 AM Glimepiride (Amaryl) 4 MG TABLET 1 Tablet ORAL DAILY Comments: NOT GIVEN IN THE HOSPITAL Isosorbide Mononitrate (Isosorbide Mononitrate ER) 30 MG TAB.ER.24H 1 Tablet ORAL DAILY Qty = 90 Comments: Last Taken: 10/24/16 Time: 9 AM Lisinopril (Lisinopril) 40 MG TABLET 1 Tablet ORAL DAILY Qty = 90 Comments: Last Taken: 10/24/16 Time: 9 AM Metformin HCl (Metformin HCl) 1,000 MG TABLET 1 Tablet ORAL TWICE DAILY Comments: NOT GIVEN IN THE HOSPITAL Multivitamin (Daily Multiple Vitamin) 1 EACH TABLET 1 Tablet ORAL DAILY Comments: NOT GIVEN IN THE HOSPITAL Albuterol Sulfate (Proair Hfa) 90 MCG HFA.AER.AD 2 Puff Inhale through mouth EVERY 4-6 HOURS NEEDED as needed for SHORTNESS OF BREATH Comments: NOT GIVEN IN HOSPITAL Start taking the following new medications: Apixaban (Eliquis) 5 MG TABLET 5 Milligram ORAL TWICE DAILY Qty = 90 No Refills Instructions: . Comments: Last Taken: 10/24/16 Time: 9 AM Dronedarone HCl (Multaq) 400 MG TABLET 400 Milligram ORAL TWICE DAILY Qty = 90 No Refills Instructions: . Comments: Last Taken: 10/24/16 Time: 9 AM Atorvastatin Calcium (Atorvastatin Calcium) 80 MG TABLET 80 Milligram ORAL 5 PM Qty = 90 No Refills Instructions: . Comments: Last Taken: 10/23/16 Time: 4 PM Metoprolol Tartrate (Metoprolol Tartrate) 25 MG TABLET 1 Tablet ORAL TWICE DAILY Qty = 120 No Refills Comments: Last Taken: 10/24/16 Time: 11:30 AM Copies To: APPLE TRIMBLE,PANKAJ Sanders Attending Review Statement Documenting Attending: JOHNSON MCARTHUR M.D Other Findings: I have reviewed the discharge summary.
[2016-10-24 08:27] VITALS: BP 122/78
[2016-10-24] MEDS ORDERED: METOPROLOL TART25 M1 PO ×2 (09:08→09:54)
[2016-10-24] MEDS ORDERED: MULTAQ400 M1 PO (09:54)
[2016-10-24] MEDS ORDERED: ATORVASTATIN CA80 M1 PO (09:54)
[2016-10-24] MEDS ORDERED: ELIQUIS5 M1 PO (09:54)
--- NOTE | 2016-10-24 10:01 | PN- Cardiology ---
Subjective Subjective: Patient feels well. She denies chest pain shortness of breath or dizziness. Review of Systems: Eyes no blurred or double vision Ears no deafness or ringing Nose and throat no recurrent sinusitis Lungs per history of present illness Heart per history of present illness Abdomen no nausea vomiting Musculoskeletal occasional muscle and joint pains Psych no anxiety or depression Neuro without recurrent headache or seizures Endocrine no heat or cold intolerance Objective Vital Signs and I&Os Vital Signs Date Time Temp Pulse Resp B/P B/P Pulse O2 O2 Flow FiO2 Mean Ox Delivery Rate 10/24 922 56 122/78 10/24 0823 56 122/78 10/24 922 56 122/78 10/24 0822 56 122/78 10/24 0827 97.8 56 20 122/78 95 10/24 0000 Room Air 10/23 2300 98.1 59 18 126/70 96 Room Air 10/23 2140 59 130/60 10/23 1609 98.2 55 17 127/59 95 Room Air 10/23 1259 Room Air Room Air 10/23 1112 60 153/84 10/23 1112 60 153/84 10/23 1112 60 153/84 Intake & Output 10/24 1600 10/24 0800 10/24 0000 10/23 1600 10/23 0800 10/23 0000 Intake Total 400 242 463 3479 200 Output Total 500 2100 Balance 400 350 -200 50 200 Intake, IV 100 350 Intake, Oral 400 580 478 6849 200 Number 0 1 Bowel Movements Output, Urine 500 2100 Physical Exam: Patient is a well-developed well-nourished female appearing in no acute distress HEENT is unremarkable Neck is supple there is no JVD Lungs are clear Heart regular rhythm S1 and S2 are normal no murmurs gallops or rubs Abdomen bowel sounds positive Extremities without edema Current Medications: Current Medications Sig/Jo Start time Last Medication Dose Route Stop Time Status Admin Acetaminophen 650 MG Q6P PRN 10/22 1015 AC PO Acetaminophen/ 1 TAB Q6P PRN 10/22 1015 AC Hydrocodone Bitart PO Amlodipine Besylate 5 MG DAILY 10/23 1000 AC 10/24 PO 0923 Apixaban 5 MG BID 10/23 1316 AC 10/24 PO 0922 Aspirin 81 MG DAILY 10/22 1006 AC 10/24 PO 0922 Atorvastatin Calcium 80 MG 1700 10/22 1700 AC 10/23 PO 1618 Clopidogrel Bisulfate 75 MG DAILY 10/22 1006 DC 10/23 PO 1112 Dronedarone 400 MG BID 10/23 2200 AC 10/24 PO 0923 Heparin Sodium 10,000 UNIT .STK-MED ONE 10/23 1313 DC (Porcine) IV 10/23 1314 Heparin Sodium/ 25,000 UNIT Q24H 10/22 1315 DC 10/23 Dextrose IV 1324 Dextrose/Water 500 ML Insulin Aspart 0 TIDAC 10/23 0800 AC 10/24 SC 0831 Isosorbide 30 MG DAILY 10/22 1007 AC 10/24 Mononitrate PO 0922 Lisinopril 40 MG DAILY 10/22 1007 AC 10/24 PO 0923 Metoprolol Tartrate 37.5 MG BID 10/24 1000 DC PO Metoprolol Tartrate 25 MG BID 10/24 1000 CAN PO Metoprolol Tartrate 37.5 MG BID 10/24 1000 UNVr PO Metoprolol Tartrate 50 MG BID 10/23 2200 DC 10/23 PO 2147 Morphine Sulfate 2 MG Q4P PRN 10/22 1015 AC IV Nitroglycerin 0.4 MG Q 5 MINUTES X 3 DO.. 10/22 1030 AC SL Patient Medication 1 ED .STK-MED ONE 10/23 1413 DC Teaching ED 10/23 1414 Sotalol HCl 80 MG BID 10/22 2199 DC 10/22 PO 2142 Results Last 48 Hrs of Labs/Mics: Laboratory Tests 10/23/16 1600: APTT Cancelled 10/23/16 1122: RBC 4.57, MCV 84.3, MCH 28.7, RDW 13.7, MPV 10.2, Gran % 56.6, Lymphocytes % 31.6, Monocytes % 6.2, Eosinophils % 5.0, Basophils % 0.6, Absolute Granulocytes 4.9, Absolute Lymphocytes 2.8, Absolute Monocytes 0.5, Absolute Eosinophils 0.4, Absolute Basophils 0.1, PUBS MCHC 34.1 10/23/16 0920: Anion Gap 8, Estimated GFR > 60, BUN/Creatinine Ratio 23.3, Triglycerides 218 H , Cholesterol 193, LDL Cholesterol, Calc 121, HDL Cholesterol 29 L, Cholesterol /HDL Ratio 7 H, APTT 34 10/23/16 0155: Troponin I 0.14 *H 10/22/16 2320: APTT 30 10/22/16 1919: Troponin I 0.20 *H 10/22/16 1145: Troponin I 0.17 *H Telemetry personally reviewed sinus rhythm sinus bradycardia and no further episodes of atrial flutter Recent Imaging Studies: EKG sinus bradycardia normal QT nonspecific T-wave changes Echocardiogram CONCLUSIONS Normal left ventricular systolic function with mild concentric hypertrophy. No significant valvular abnormalities noted. Isak Diaz M.D. Assessment/Plan Assessment/Plan 1. New onset supraventricular tachyarrhythmia likely due to paroxysmal atrial flutter 2. Demand ischemia 3. History of coronary artery disease with CABG/bare-metal stent 2011, complicated by retroperitoneal bleed 4. Diabetes 5. Hypertension 6. Prolonged QT on new sotalol now normalized Recommendations 1. I would continue current medications with the exception of decreasing metoprolol to 25 mg twice a day as discussed with the house staff 2. Continue Eliquis for stroke prevention 3. Plan is for discharge home with outpatient follow-up in approximately one week Continue telemetry? No
[2016-10-24 11:31] VITALS: BP 132/82
== END 2016-10-24 13:25 | DRG 311 ==
LOC: ERH 06:10 → 1NO 09:18 → ERHI 09:18 → ENRESERV 10:10 → ENTRNSPT 11:53 → 1NO 12:22 → CMPTRNSPT 10-23 14:30 → ENPENDDIS 10-24 09:51 → 1NO 10-24 13:25
PROVIDERS: Emergency Medicine; Internal Medicine; Internal Medicine Infectious Disease; ADMIT Hospitalist
DX: I24.8 Other forms of acute ischemic heart disease (principal); I48.92 Unspecified atrial flutter; I10 Essential (primary) hypertension; I47.1 Supraventricular tachycardia; I25.10 Atherosclerotic heart disease of native coronary artery without angina pectoris; Z95.1 Presence of aortocoronary bypass graft; E11.9 Type 2 diabetes mellitus without complications; E78.5 Hyperlipidemia, unspecified; Z82.49 Family history of ischemic heart disease and other diseases of the circulatory system; F17.200 Nicotine dependence, unspecified, uncomplicated; I25.2 Old myocardial infarction; J45.909 Unspecified asthma, uncomplicated; R00.1 Bradycardia, unspecified; Z79.84 Long term (current) use of oral hypoglycemic drugs
CPT/HCPCS: 1NP; 36415; 82436; 93005; 93010; 93306; 96374; 99291; J1644; J1815; J3490; J7042; J7060